=== PATIENT | female | born 1955 | race Caucasian/White ===

== ENCOUNTER 2017-08-18 15:35 | Emergency (ER) | payer BC ==
[~2017-08-18] VITALS: Ht 167.6 cm; Wt 76.4 kg
[2017-08-18] MEDS ORDERED: IOHEXOL 350 MG/ML 10 ML VIAL (for RAD DIAG) IVCONTRAST ONE (15:36)
[2017-08-18 15:46] VITALS: BP 138/64; PULSE 82; RESP 18; TEMP 98.5; O2SAT 95
--- NOTE | 2017-08-18 16:28 | PD ---
HPI Chief Complaint: Complaint Time Seen by Provider: 16:12 Travel History International Travel<30 days: No Contact w/Intl Traveler<30days: No Traveled to known affect area: No History of Present Illness HPI 62yo F with no PMH presents to the ED with c/o dysuria for 3 weeks. Said she had finished bactrim and was not getting better so was given cipro by PMD. Said symptoms improved after cipro but came back and she then went to urgent care about 5 days ago and was informed that her urinalysis was normal. Said she has fullness in her suprapubic region and some discomfort that radiates to right lower abdomen and lower back. Pt took Azo today which helped a little. Had hysterectomy before. Denies any fever, chest pain, sob, n/v, focal weakness or numbness. PFSH Past Medical History Diminished Hearing: No Tetanus Vaccination: Unknown Influenza Vaccination: Yes ?: Not Past Surgical History Hysterectomy: Yes (full) Social History Alcohol Use: No Tobacco Use: No Substance Use: No Allergies-Medications (Allergen,Severity, Reaction): Coded Allergies: codeine (Verified Allergy, Unknown, 08/18/17) morphine (Verified Allergy, Unknown, 08/18/17) Review of Systems Except as stated in HPI: all other systems reviewed are Neg Physical Exam Narrative GENERAL: 62yo F in mild distress. SKIN: Focused skin assessment warm/dry. HEAD: Atraumatic. Normocephalic. CARDIOVASCULAR: Regular rate and rhythm. No murmur appreciated. RESPIRATORY: No accessory muscle use. Clear to auscultation. Breath sounds equal bilaterally. GASTROINTESTINAL: Abdomen soft, +TTP suprapubic and right of suprapubic abdomen. No rebound tenderness or guarding. BACK: No CVA tenderness bilaterally. MUSCULOSKELETAL: No obvious deformities. No clubbing. No cyanosis. No edema. NEUROLOGICAL: Awake and alert. No obvious cranial nerve deficits. Motor grossly within normal limits. Normal speech. PSYCHIATRIC: Appropriate mood and affect; insight and judgment normal. Data Data Last Documented VS Vital Signs Date Time Temp Pulse Resp B/P (MAP) Pulse Ox O2 Delivery O2 Flow Rate FiO2 08/18/17 15:46 98.5 82 18 138/64 (88) 95 Orders Orders Urinalysis - C+S If Indicated (08/18/17 15:47) Complete Blood Count With Diff (08/18/17 16:21) Comprehensive Metabolic Panel (08/18/17 16:21) Ct Abd/Pel W Iv Contrast(Rout) (08/18/17 16:21) Ketorolac Inj (Toradol Inj) (08/18/17 16:30) Ceftriaxone Inj (Rocephin Inj) (08/18/17 17:30) Iohexol 350 Inj (Omnipaque 350 Inj) (08/18/17 15:36) Labs Laboratory Tests Test 08/18/17 16:00 08/18/17 16:56 Urine Collection Type VOIDED Urine Color ORANGE Urine Turbidity CLEAR Urine pH 5.0 Urine Specific [place] 1.015 Urine Protein TRACE mg/dL Urine Glucose (UA) 100 mg/dL Urine Ketones NEG mg/dL Urine Occult Blood TRACE Urine Nitrite POS Urine Bilirubin NEG Urine Urobilinogen 2.0 MG/DL Urine Leukocyte Esterase NEG Urine WBC 3-5 /hpf Urine Squamous Epithelial Cells 0-3 /hpf Urine Hyaline Casts 0-2 /lpf Urine White Blood Cell Casts 0-2 /lpf Microscopic Urinalysis Comment CULT NOT INDICATED White Blood Count 5.2 TH/MM3 Red Blood Count 4.46 MIL/MM3 Hemoglobin 13.5 GM/DL Hematocrit 39.7 % Mean Corpuscular Volume 89.2 FL Mean Corpuscular Hemoglobin 30.2 PG Mean Corpuscular Hemoglobin Concent 33.9 % Red Cell Distribution Width 12.6 % Platelet Count 211 TH/MM3 Mean Platelet Volume 8.2 FL Neutrophils (%) (Auto) 65.9 % Lymphocytes (%) (Auto) 24.7 % Monocytes (%) (Auto) 7.4 % Eosinophils (%) (Auto) 1.5 % Basophils (%) (Auto) 0.5 % Neutrophils # (Auto) 3.4 TH/MM3 Lymphocytes # (Auto) 1.3 TH/MM3 Monocytes # (Auto) 0.4 TH/MM3 Eosinophils # (Auto) 0.1 TH/MM3 Basophils # (Auto) 0.0 TH/MM3 CBC Comment DIFF FINAL Differential Comment Blood Urea Nitrogen 27 MG/DL Creatinine 1.20 MG/DL Random Glucose 90 MG/DL Total Protein 7.2 GM/DL Albumin 4.0 GM/DL Calcium Level 9.2 MG/DL Alkaline Phosphatase 74 U/L Aspartate Amino Transf (AST/SGOT) 17 U/L Alanine Aminotransferase (ALT/SGPT) 25 U/L Total Bilirubin 0.5 MG/DL Sodium Level 142 MEQ/L Potassium Level 3.6 MEQ/L Chloride Level 107 MEQ/L Carbon Dioxide Level 27.3 MEQ/L Anion Gap 8 MEQ/L Estimat Glomerular Filtration Rate 46 ML/MIN MDM Medical Decision Making Medical Screen Exam Complete: Yes Emergency Medical Condition: Yes Differential Diagnosis Cystitis vs. nephrolithiasis vs. colitis Narrative Course 62yo F with increased urinary frequency and dysuria for 3 weeks with some improvement after cipro. Pt had negative UA recently and still with lower abdominal pain on exam. Pt has finished 2 antibiotics so will check UA and obtain labs and CTa/p to evaluate for cause of pain. She is well appearing with no nausea or vomiting. Labs reviewed, no leukocytosis. H/H normal. BUN/ creatinine 27/1.20. Pt said she has been not drinking as much water since she has increased urinary frequency. UA showed positive nitrite. Pt given ceftriaxone. CT a/p showed no acute abnormality. Mild diverticulosis of sigmoid colon. No diverticulitis or other acute inflammatory changes. Pt has appointment with urologist. Return precautions given. Diagnosis Primary Impression: UTI (urinary tract infection) Qualified Codes: N39.0 - Urinary tract infection, site not specified; R31.9 - Hematuria, unspecified Patient Instructions: General Instructions Departure Forms: Tests/Procedures Additional Instructions: Please follow up with your urologist at your appointment time. Return to the ED if symptoms worsen. Med/Other Pt SpecificInfo: Prescription(s) given Scripts Acetaminophen (Tylenol) 325 Mg Tab 650 MG PO Q6H Y for PAIN SCALE 1 TO 4, #20 TAB 0 Refills Prov: Donna Evans DO 08/18/17 Cephalexin (Cephalexin) 500 Mg Tab 500 MG PO Q12H for Infection for 7 Days, #14 TAB 0 Refills Prov: Donna Evans DO 08/18/17 Disposition: 01 DISCHARGE HOME Condition: Stable Donna Evans DO Aug 18, 2017 16:28
[2017-08-18] MEDS ORDERED: KETOROLAC TROMETHAMINE 30 MG/ML (IVP) VIAL IV PUSH ONE (16:30)
[2017-08-18 16:48] LABS: BILIRUBIN, URINE NEG (NEG); BLOOD, URINE TRACE (NEG); GLUCOSE,URINE 100 mg/dL (NEG); KETONE, URINE NEG (NEG); NITRITE,URINE POS (NEG); URINE LEUKOCYTE ESTERASE NEG (NEG)
[2017-08-18 16:51] LABS: URINE COLOR ORANGE (YELLW/STRAW)
[2017-08-18 17:13] LABS: AUTOMATED NEUTROPHIL # 3.4 TH/MM3 (1.8-7.7); BASOPHIL % 0.5 % (0.0-2.0); EOSINOPHIL # 0.1 TH/MM3 (0-0.4); EOSINOPHIL % 1.5 % (0.0-4.0); HEMATOCRIT 39.7 % (35.0-46.0); HEMOGLOBIN 13.5 GM/DL (11.6-15.3); LYMPH % 24.7 % (9.0-44.0); LYMPHOCYTE # 1.3 TH/MM3 (1.0-4.8); MEAN CELL VOLUME 89.2 FL (80.0-100.0); MEAN CORPUSCULAR HEMOGLOBIN 30.2 PG (27.0-34.0); MEAN CORPUSCULAR HGB CONC 33.9 % (32.0-36.0); MEAN PLATELET VOLUME 8.2 FL (7.0-11.0); MONO % 7.4 % (0.0-8.0); MONOCYTE # 0.4 TH/MM3 (0-0.9); NEUT % 65.9 % (16.0-70.0); PLATELET COUNT 211 TH/MM3 (150-450); RED BLOOD COUNT 4.46 MIL/MM3 (4.00-5.30); RED CELL DISTRIBUTION WIDTH 12.6 % (11.6-17.2); WHITE BLOOD COUNT 5.2 TH/MM3 (4.0-11.0)
[2017-08-18 17:17] LABS: HYALINE CAST, URINE 0-2 /lpf (RARE)
[2017-08-18 17:18] LABS: SQUAMOUS EPITHELIAL CELL URINE 0-3 /hpf (0-5)
[2017-08-18 17:19] LABS: WHITE BLOOD CELL CAST, URINE 0-2 /lpf
[2017-08-18] MEDS ORDERED: cefTRIAXone INJ 1,000 MG in SODIUM CHLORIDE 0.9% INJ 100 ML IV ONE (17:30)
[2017-08-18 17:44] LABS: CHLORIDE 107 MEQ/L (98-107); SODIUM (NA) 142 MEQ/L (136-145)
[2017-08-18 17:47] LABS: CALCIUM 9.2 MG/DL (8.5-10.1)
[2017-08-18 17:48] LABS: BICARBONATE 27.3 MEQ/L (21.0-32.0); BLOOD UREA NITROGEN 27 MG/DL (7-18); GLUCOSE,RANDOM 90 MG/DL (74-106)
[2017-08-18 17:51] LABS: ALT (GPT) 25 U/L (10-53); AST (GOT) 17 U/L (15-37); GLOMERULAR FILTRATION RATE 46 ML/MIN (>89)
[2017-08-18 17:52] LABS: TOTAL BILIRUBIN ADULT 0.5 MG/DL (0.2-1.0); TOTAL PROTEIN 7.2 GM/DL (6.4-8.2)
[2017-08-18 17:54] LABS: ALKALINE PHOSPHATASE 74 U/L (45-117)
--- NOTE | 2017-08-18 18:32 | RADRPT ---
EXAM DATE/TIME: 08/18/2017 18:03 [facility] COMPARISON: No previous studies available for comparison. INDICATIONS : Suprapubic pain and dysuria for three weeks. IV CONTRAST: 98 cc Omnipaque 350 (iohexol) IV ORAL CONTRAST: No oral contrast ingested. RADIATION DOSE: 16.90 CTDIvol (mGy) MEDICAL HISTORY : None SURGICAL HISTORY : Hysterectomy. ENCOUNTER: Initial ACUITY: 3 weeks PAIN SCALE: 4/10 LOCATION: Bilateral suprapubic. TECHNIQUE: Volumetric scanning of the abdomen and pelvis was performed. Using automated exposure control and ad justment of the mA and/or kV according to patient size, radiation dose was kept as low as reasonably achievable to obtain optimal diagnostic quality images. DICOM format image data is available electro nically for review and comparison. FINDINGS: LOWER LUNGS: The visualized lower lungs are clear. LIVER: Homogeneous density without lesion. There is no dilation of the biliary tree. No calcified gallston es. SPLEEN: Normal size without lesion. PANCREAS: Within normal limits. KIDNEYS: Normal in size and shape. There is no mass, stone or hydronephrosis. ADRENAL GLANDS: Within normal limits. VASCULAR: There is no aortic aneurysm. BOWEL/MESENTERY: The stomach, small bowel, and colon demonstrate no acute abnormality. Scattered sigmoid diverticula. There is no free intraperitoneal air or fluid. Normal appendix. ABDOMINAL WALL: Within normal limits. RETROPERITONEUM: There is no lymphadenopathy. BLADDER: No wall thickening or mass. REPRODUCTIVE: Previous hysterectomy. INGUINAL: There is no lymphadenopathy or hernia. MUSCULOSKELETAL: No acute bony abnormality. CONCLUSION: 1. No acute abnormality demonstrated. 2. Mild diverticulosis of the sigmoid colon. No diverticulitis or other acute inflammatory changes de monstrated. Remy Galloway MD on August 18, 2017 at 18:30 Board Certified Radiologist. This report was verified electronically.
[2017-08-18] MEDS ORDERED: TYLE325T PO (18:49)
[2017-08-18] MEDS ORDERED: CEPH500T PO (18:49)
[2017-08-18] MEDS ORDERED: ACETAMINOPHEN 500 MG CPLT PO ONE (19:00)
== END 2017-08-18 19:17 | disposition home or self-care (01) ==
LOC: PHEFT 15:35
DX: N39.0 Urinary tract infection, site not specified (principal); Z88.5 Allergy status to narcotic agent
CPT/HCPCS: 74177; 80053; 81001; 85025; 96365; 96375; 99284; J0696; J1885; Q9967